=== PATIENT | female | born 1990 | race Hispanic/Latino ===

== ENCOUNTER 2020-12-01 17:20 | Observation (INO) | payer MEDICARE ==
[~2020-12-01] VITALS: Ht 154.9 cm; Wt 56.7 kg
[2020-12-01] MEDS ORDERED: METOPROLOL TARTRATE 1 MG/ML 5ML VIAL IV ONE ×3 (18:17→21:18)
[2020-12-01] MEDS ORDERED: APIXABAN 2.5 MG TABLET PO ONE (18:17)
[2020-12-01] MEDS ORDERED: METOPROLOL TARTRATE 50 MG TAB ONE (18:18)
[2020-12-01 18:19] LABS: BASOPHILS % (AUTO) 0.8 % (0.0-5.0); EOSINOPHILS % (AUTO) 0.2 % (0.0-8.0); HEMATOCRIT 38.7 % (36-48); LYMPHOCYTES % (AUTO) 15.4 % (21.0-51.0); MEAN CORPUSCULAR HEMOGLOBIN 23.2 pg (27.0-33.0); MEAN CORPUSCULAR HGB CONC 31.5 g/dL (32.0-36.0); MEAN CORPUSCULAR VOLUME 73.7 fL (79-99); MONOCYTES % (AUTO) 10.7 % (3.0-13.0); NEUTROPHILS % (AUTO) 72.6 % (40.0-77.0); PLATELET COUNT (AUTO) 229 K/uL (130-400); RED BLOOD CELL COUNT(AUTO) 5.25 MIL/uL (4.00-5.50); RED CELL DISTRIBUTION WIDTH 16.5 % (11.0-15.5); WHITE BLOOD COUNT (AUTO) 12.5 K/uL (4.8-10.8)
[2020-12-01 18:30] LABS: CREATININE 0.8 mg/dL (0.5-1.5)
[2020-12-01 18:32] LABS: INR 1.17 (0.85-1.15); PROTHROMBIN TIME 12.3 SEC (9.6-11.6)
[2020-12-01 18:34] LABS: PARTIAL THROMBOPLASTIN TIME 30.8 SEC (26.3-35.5)
[2020-12-01 18:43] LABS: BILIRUBIN,TOTAL 1.8 mg/dL (0.2-1.0); THYROID STIMULATING HORMONE 0.03 uIU/mL (0.36-3.74); TOTAL PROTEIN, SERUM 7.4 g/dL (6.0-8.3)
[2020-12-01] MEDS ORDERED: 0.9%NACL 10ML VIAL IVP PRN (19:45)
[2020-12-01] MEDS ORDERED: METOPROLOL TARTRATE 1 MG/ML 5ML VIAL IV PRN (19:45)
[2020-12-01] MEDS ORDERED: METOPROLOL TARTRATE 50 MG TAB PO ONE (19:45)
[2020-12-01] MEDS ORDERED: DRONEDARONE HYDROCHLORIDE 400 MG TABLET PO SCH (21:00)
[2020-12-01] MEDS ORDERED: APIXABAN 5 MG TABLET PO SCH (21:00)
[2020-12-02] MEDS ORDERED: 0.9%NACL 1000ML 1,000 ML IV ONE (09:20)
[2020-12-02] MEDS ORDERED: PROPOFOL 10 MG/ML 20ML VIAL IV ONE (09:26)
[2020-12-02] MEDS ORDERED: LIDOCAINE PF 100MG/5ML (2%) SYRINGE 5ML ONE (09:26)
[2020-12-02 11:30] LABS: APPEARANCE,URINE Clear (CLEAR); BILIRUBIN,URINE Negative (NEGATIVE); COLOR,URINE Yellow (YELLOW); GLUCOSE, URINE (UA) Negative (NEGATIVE); KETONES,URINE Trace mg/dL (NEGATIVE); LEUKOCYTE ESTERASE ,URINE Small (NEGATIVE); NITRATE,URINE Negative (NEGATIVE); OCCULT BLOOD,URINE Negative (NEGATIVE); PROTEIN,URINE Negative (NEGATIVE); UROBILINOGEN,URINE 0.2 mg/dL (0.2-1.0)
[2020-12-02 11:47] LABS: BACTERIA,URINE Rare /HPF (None Seen); RBC,URINE None Seen /HPF (0-1); SQUAMOUS EPITHELIAL CELL,UR 0-2 /HPF (0-2); WBC,URINE 0-1 /HPF (0-1)
[2020-12-02] MEDS ORDERED: CEFTRIAXONE 1G VIAL ONE (13:26)
[2020-12-02] MEDS ORDERED: CEFTRIAXONE 1G VIAL IVP SCH (13:30)
[2020-12-02] MEDS ORDERED: DRON400T7 PO (14:06)
[2020-12-02] MEDS ORDERED: CETI10TA57 PO (14:06)
[2020-12-02] MEDS ORDERED: METO-409 PO ×2 (14:06→14:29)
[2020-12-02] MEDS ORDERED: APIX5TAB PO (14:29)
[2020-12-02] MEDS ORDERED: SULF1TAB41 PO (14:29)
== END 2020-12-02 16:01 | disposition home or self-care (01) ==
LOC: EDH 17:20 → EDHIP 17:32
PROVIDERS: ADMIT Internal Medicine; ATTEND Internal Medicine
DX: I48.19 Other persistent atrial fibrillation (principal); Z20.822 Contact with and (suspected) exposure to COVID-19; I42.2 Other hypertrophic cardiomyopathy; Q87.19 Other congenital malformation syndromes predominantly associated with short stature; D68.0 Von Willebrand disease; D72.829 Elevated white blood cell count, unspecified; E80.6 Other disorders of bilirubin metabolism; E05.90 Thyrotoxicosis, unspecified without thyrotoxic crisis or storm; Z95.810 Presence of automatic (implantable) cardiac defibrillator; Z79.01 Long term (current) use of anticoagulants; Z79.899 Other long term (current) drug therapy
CPT/HCPCS: 36415 ×2; 80053; 81001; 84439; 84443; 84480; 85025; 85610; 85730; 87426; 92960; 93005; 93925; 99284; G0378 ×20; J0696; J2001; J2704; J3490 ×3; J7030; U0003

== ENCOUNTER 2021-12-20 18:00 | Inpatient (IN) | payer OTHER, MEDICARE ==
[~2021-12-20] VITALS: Ht 185.4 cm; Wt 63.5 kg
[~2021-12-20 18:00] MED LIST: APIX5TAB PO; CETI10TA57 PO; DRON400T7 PO; METO-409 PO; SULF1TAB41 PO
[2021-12-20 20:14] LABS: HEMATOCRIT 43.7 % (36-48); MEAN CORPUSCULAR HEMOGLOBIN 27.5 pg (27.0-33.0); MEAN CORPUSCULAR HGB CONC 32.3 g/dL (32.0-36.0); MEAN CORPUSCULAR VOLUME 85.4 fL (79-99); RED BLOOD CELL COUNT(AUTO) 5.12 MIL/uL (4.00-5.50); RED CELL DISTRIBUTION WIDTH 14.3 % (11.0-15.5); WHITE BLOOD COUNT (AUTO) 15.7 K/uL (4.8-10.8)
[2021-12-20 20:24] LABS: CREATININE 0.8 mg/dL (0.5-1.5); POTASSIUM 4.3 mmol/L (3.5-5.1)
[2021-12-20 20:28] LABS: ALBUMIN 4.1 g/dL (3.5-5.0); BILIRUBIN,DIRECT 0.4 mg/dL (0.0-0.3); BILIRUBIN,TOTAL 3.8 mg/dL (0.2-1.0); MAGNESIUM 2.1 mg/dL (1.80-2.40); TOTAL PROTEIN, SERUM 7.4 g/dL (6.0-8.3)
[2021-12-20] MEDS: DILTIAZEM 125MG+100 ML NS 125 ML IV SCH (20:45)
[2021-12-20] MEDS ORDERED: METOPROLOL TARTRATE 1 MG/ML 5ML VIAL IV ONE ×3 (23:30→23:45)
[2021-12-21] MEDS: DILTIAZEM 125MG+100 ML NS 125 ML IV SCH (01:17)
[2021-12-21] MEDS ORDERED: DIGOXIN 250 MCG/ML 2ML AMP IV SCH ×5 (02:30→10:30)
[2021-12-21] MEDS ORDERED: ACETAMINOPHEN 325 MG TAB PO PRN (09:30)
[2021-12-22 00:30] VITALS: BP 111/62
[2021-12-22] MEDS: DILTIAZEM 125MG+100 ML NS 125 ML IV SCH (01:00)
[2021-12-22 03:00] VITALS: BP 123/75
[2021-12-22] MEDS ORDERED: 0.9%NACL 1000ML 1,000 ML IV ONE (06:44)
[2021-12-22 08:00] VITALS: BP 126/53
[2021-12-22] MEDS ORDERED: FENTANYL CITRATE PF 50 MCG/1 ML 2ML VIAL ONE (09:14)
[2021-12-22] MEDS ORDERED: MIDAZOLAM HCL 1 MG/ML 2ML VIAL ONE ×2 (09:15→10:01)
[2021-12-22 12:24] VITALS: BP 116/73
[2021-12-22] MEDS ORDERED: DILT-36 PO (16:23)
== END 2021-12-22 17:30 | disposition home or self-care (01) | DRG 309 ==
LOC: EDH 18:00 → EDHIP 18:16 → 2AH 12-21 23:42
PROVIDERS: ADMIT Internal Medicine Cardiovascular Disease; ATTEND Internal Medicine Cardiovascular Disease
PROC: B246ZZ4 Ultrasonography of Right and Left Heart, Transesophageal (ICD-10-PCS; principal; 2021-12-22)
PROC: 5A2204Z Restoration of Cardiac Rhythm, Single (ICD-10-PCS; 2021-12-22)
DX: I48.0 Paroxysmal atrial fibrillation (principal); Q87.19 Other congenital malformation syndromes predominantly associated with short stature; I47.1 Supraventricular tachycardia; Z20.822 Contact with and (suspected) exposure to COVID-19; I42.2 Other hypertrophic cardiomyopathy; Z79.01 Long term (current) use of anticoagulants; Z95.810 Presence of automatic (implantable) cardiac defibrillator
CPT/HCPCS: 36415; 71045; 80048; 80076; 83735; 84484; 85027; 87635; 92960; 93005; 93312; G0378; J1160; J2250; J3010; J3490; J7030

== ENCOUNTER 2022-01-24 04:15 | Inpatient (IN) | payer OTHER, MEDICARE ==
[~2022-01-24 04:15] MED LIST changes: +DILT-36 PO
[2022-01-24 05:17] LABS: BASOPHILS % (AUTO) 0.7 % (0.0-5.0); EOSINOPHILS % (AUTO) 0.5 % (0.0-8.0); HEMATOCRIT 45.3 % (36-48); LYMPHOCYTES % (AUTO) 9.6 % (21.0-51.0); MEAN CORPUSCULAR HEMOGLOBIN 27.4 pg (27.0-33.0); MEAN CORPUSCULAR HGB CONC 33.3 g/dL (32.0-36.0); MEAN CORPUSCULAR VOLUME 82.1 fL (79-99); MONOCYTES % (AUTO) 6.3 % (3.0-13.0); NEUTROPHILS % (AUTO) 82.5 % (40.0-77.0); PLATELET COUNT (AUTO) 236 K/uL (130-400); RED BLOOD CELL COUNT(AUTO) 5.52 MIL/uL (4.00-5.50); RED CELL DISTRIBUTION WIDTH 12.8 % (11.0-15.5); WHITE BLOOD COUNT (AUTO) 14.7 K/uL (4.8-10.8)
[2022-01-24 05:30] LABS: CREATININE 0.5 mg/dL (0.5-1.5); POTASSIUM 4.4 mmol/L (3.5-5.1)
[2022-01-24] MEDS ORDERED: DILTIAZEM 125 MG/25 ML INJ IV ONE (05:33)
[2022-01-24] MEDS ORDERED: DILTIAZEM 50MG VIAL IV ONE (05:34)
[2022-01-24] MEDS ORDERED: 0.9%NACL 100ML 100 ML ONE (05:34)
[2022-01-24 05:42] LABS: ALBUMIN 4.2 g/dL (3.5-5.0); BILIRUBIN,TOTAL 1.8 mg/dL (0.2-1.0); TOTAL PROTEIN, SERUM 7.4 g/dL (6.0-8.3)
[2022-01-24] MEDS: DILTIAZEM 125 MG/25 ML INJ 125 MG in 0.9%NACL 100ML 100 ML IV SCH ×2 (05:47→16:59)
[2022-01-24] MEDS ORDERED: PANTOPRAZOLE 40 MG/VIAL IVP ONE (10:30)
[2022-01-24] MEDS ORDERED: APIXABAN 5 MG TABLET PO SCH (11:00)
[2022-01-24] MEDS: PANTOPRAZOLE 40 MG/VIAL IVP SCH (11:17)
[2022-01-24] MEDS: 0.9%NACL 1000ML 1,000 ML IV SCH (11:21)
[2022-01-24] MEDS ORDERED: MONT-39 PO (11:46)
[2022-01-24 14:28] LABS: APPEARANCE,URINE Clear (CLEAR); BILIRUBIN,URINE Negative (NEGATIVE); COLOR,URINE Yellow (YELLOW); GLUCOSE, URINE (UA) Negative (NEGATIVE); KETONES,URINE Negative (NEGATIVE); LEUKOCYTE ESTERASE ,URINE Small (NEGATIVE); NITRATE,URINE Negative (NEGATIVE); OCCULT BLOOD,URINE Negative (NEGATIVE); PROTEIN,URINE Negative (NEGATIVE); UROBILINOGEN,URINE 0.2 mg/dL (0.2-1.0)
[2022-01-24 14:41] LABS: BACTERIA,URINE Rare /HPF (None Seen); RBC,URINE 0-1 /HPF (0-1); SQUAMOUS EPITHELIAL CELL,UR Few /HPF (0-2); WBC,URINE 0-1 /HPF (0-1)
[2022-01-24] MEDS ORDERED: AMIODARONE 900MG VIAL 360 MG in DEXTROSE 5%-WATER 200 ML IV SCH (16:00)
[2022-01-24] MEDS ORDERED: AMIODARONE 150MG VIAL 150 MG in DEXTROSE 5%-WATER 100 ML IV SCH (16:00)
[2022-01-24] MEDS ORDERED: AMIODARONE 900MG VIAL 540 MG in DEXTROSE 5%-WATER 300 ML IV SCH (16:00)
[2022-01-24] MEDS ORDERED: DRONEDARONE HYDROCHLORIDE 400 MG TABLET PO SCH (17:00)
[2022-01-24] MEDS: APIXABAN 5 MG TABLET PO SCH (20:49)
[2022-01-24] MEDS: METOPROLOL SUCCINATE 50 MG TAB.SR.24H PO SCH (20:50)
[2022-01-24] MEDS: CETIRIZINE HCL 5 MG TABLET PO SCH (20:50)
[2022-01-24 21:34] VITALS: BP 128/96
[2022-01-24] MEDS: GUAIFENESIN-DM 200/20 MG 10 ML PO PRN (22:32)
[2022-01-24 23:35] VITALS: BP 99/70
[2022-01-25 01:41] VITALS: BP 113/83
[2022-01-25 03:42] VITALS: BP 105/67
[2022-01-25 04:25] LABS: BILIRUBIN,DIRECT 0.3 mg/dL (0.0-0.3); BILIRUBIN,TOTAL 3.2 mg/dL (0.2-1.0); THYROID STIMULATING HORMONE 5.37 uIU/mL (0.36-3.74)
[2022-01-25] MEDS: 0.9%NACL 1000ML 1,000 ML IV SCH (04:55)
[2022-01-25 05:49] LABS: BASOPHILS % (AUTO) 0.9 % (0.0-5.0); EOSINOPHILS % (AUTO) 1.4 % (0.0-8.0); HEMATOCRIT 43.2 % (36-48); LYMPHOCYTES % (AUTO) 14.2 % (21.0-51.0); MEAN CORPUSCULAR HEMOGLOBIN 27.7 pg (27.0-33.0); MEAN CORPUSCULAR HGB CONC 32.6 g/dL (32.0-36.0); MEAN CORPUSCULAR VOLUME 84.9 fL (79-99); MONOCYTES % (AUTO) 9.5 % (3.0-13.0); NEUTROPHILS % (AUTO) 73.8 % (40.0-77.0); PLATELET COUNT (AUTO) 241 K/uL (130-400); RED BLOOD CELL COUNT(AUTO) 5.09 MIL/uL (4.00-5.50); RED CELL DISTRIBUTION WIDTH 13.1 % (11.0-15.5)
[2022-01-25 05:58] LABS: ALBUMIN 3.7 g/dL (3.5-5.0); CREATININE 0.5 mg/dL (0.5-1.5); POTASSIUM 3.6 mmol/L (3.5-5.1); TOTAL PROTEIN, SERUM 6.6 g/dL (6.0-8.3)
[2022-01-25 07:00] VITALS: BP 112/75
[2022-01-25] MEDS: DILTIAZEM 120MG SR CAP PO SCH (09:13)
[2022-01-25] MEDS: APIXABAN 5 MG TABLET PO SCH ×2 (09:13→21:15)
[2022-01-25] MEDS: PANTOPRAZOLE 40 MG/VIAL IVP SCH (09:13)
[2022-01-25] MEDS: AMIODARONE 200 MG TABLET PO SCH ×2 (09:14→21:15)
[2022-01-25] MEDS: DILTIAZEM 125 MG/25 ML INJ 125 MG in 0.9%NACL 100ML 100 ML IV SCH (10:10)
[2022-01-25 11:00] VITALS: BP 123/85
[2022-01-25 16:00] VITALS: BP 110/57
[2022-01-25 19:28] VITALS: BP 117/71
[2022-01-25] MEDS: CETIRIZINE HCL 5 MG TABLET PO SCH (21:15)
[2022-01-25] MEDS: METOPROLOL SUCCINATE 50 MG TAB.SR.24H PO SCH (21:15)
[2022-01-25] MEDS: GUAIFENESIN-DM 200/20 MG 10 ML PO PRN (21:23)
[2022-01-26] VITALS (14 sets, daily range): BP systolic 105–135; BP diastolic 47–77
[2022-01-26] MEDS ORDERED: DILTIAZEM 50MG VIAL IV ONE ×2 (02:13→02:32)
[2022-01-26] MEDS: DILTIAZEM 125 MG/25 ML INJ 125 MG in 0.9%NACL 100ML 100 ML IV SCH (02:24)
[2022-01-26] MEDS: 0.9%NACL 1000ML 1,000 ML IV SCH (02:24)
[2022-01-26 04:33] LABS: BASOPHILS % (AUTO) 0.8 % (0.0-5.0); EOSINOPHILS % (AUTO) 1.1 % (0.0-8.0); HEMATOCRIT 38.4 % (36-48); LYMPHOCYTES % (AUTO) 8.3 % (21.0-51.0); MEAN CORPUSCULAR HGB CONC 33.3 g/dL (32.0-36.0); MONOCYTES % (AUTO) 7.5 % (3.0-13.0); NEUTROPHILS % (AUTO) 80.9 % (40.0-77.0); PLATELET COUNT (AUTO) 202 K/uL (130-400); RED BLOOD CELL COUNT(AUTO) 4.57 MIL/uL (4.00-5.50); RED CELL DISTRIBUTION WIDTH 13.2 % (11.0-15.5); WHITE BLOOD COUNT (AUTO) 13.2 K/uL (4.8-10.8)
[2022-01-26 04:48] LABS: ALBUMIN 3.3 g/dL (3.5-5.0); BILIRUBIN,TOTAL 2.1 mg/dL (0.2-1.0); CREATININE 0.5 mg/dL (0.5-1.5); POTASSIUM 3.4 mmol/L (3.5-5.1); TOTAL PROTEIN, SERUM 6.3 g/dL (6.0-8.3)
[2022-01-26] MEDS: DILTIAZEM 120MG SR CAP PO SCH (08:52)
[2022-01-26] MEDS: APIXABAN 5 MG TABLET PO SCH (08:52)
[2022-01-26] MEDS: AMIODARONE 200 MG TABLET PO SCH (08:52)
[2022-01-26] MEDS: PANTOPRAZOLE 40 MG/VIAL IVP SCH (08:53)
[2022-01-26] MEDS ORDERED: KCL 20 MEQ ERTAB PO SCH (11:00)
[2022-01-26] MEDS ORDERED: PROPOFOL 10 MG/ML 20ML VIAL IV ONE (15:12)
[2022-01-26] MEDS ORDERED: AMIO200T68 PO (16:08)
== END 2022-01-26 18:58 | disposition home or self-care (01) | DRG 309 ==
LOC: EDH 04:15 → EDHIP 10:21 → 2AH 17:49
PROVIDERS: ADMIT Internal Medicine; ATTEND Internal Medicine
PROC: 5A2204Z Restoration of Cardiac Rhythm, Single (ICD-10-PCS; principal; 2022-01-26)
DX: I48.19 Other persistent atrial fibrillation (principal); Q87.19 Other congenital malformation syndromes predominantly associated with short stature; D68.0 Von Willebrand disease; E03.9 Hypothyroidism, unspecified; D72.829 Elevated white blood cell count, unspecified; I48.92 Unspecified atrial flutter; I42.2 Other hypertrophic cardiomyopathy; I47.1 Supraventricular tachycardia; Z20.822 Contact with and (suspected) exposure to COVID-19; Z79.01 Long term (current) use of anticoagulants; Z95.810 Presence of automatic (implantable) cardiac defibrillator; Z83.3 Family history of diabetes mellitus; Z83.42 Family history of familial hypercholesterolemia; Z82.49 Family history of ischemic heart disease and other diseases of the circulatory system
CPT/HCPCS: 36415; 71045; 80053; 81001; 82247; 82248; 83735; 84145; 84443; 84484; 85025; 85651; 86140; 87635; 87804; 93005; 93306; 99291; C9113; G0378; J0282; J2704; J3490; J7030; J7060

== ENCOUNTER → 2022-03-13 | Outpatient (CLI) | payer OTHER, MEDICARE ==
[~2022-03-13] MED LIST changes: +AMIO200T68 PO; -DRON400T7 PO; +IOHEXOL 350 MG/ML 100ML INFUS..BTL IV ONE; +MONT-39 PO
== END | disposition home or self-care (01) ==
LOC: RAH 10:25
PROVIDERS: ATTEND Internal Medicine Cardiovascular Disease
DX: I48.0 Paroxysmal atrial fibrillation (principal); I51.7 Cardiomegaly; M47.815 Spondylosis without myelopathy or radiculopathy, thoracolumbar region; Q79.1 Other congenital malformations of diaphragm
CPT/HCPCS: 71275; Q9967

== ENCOUNTER 2022-03-16 10:30 | Observation (INO) | payer OTHER, MEDICARE ==
[2022-03-14 08:30] LABS: BASOPHILS % (AUTO) 0.8 % (0.0-5.0); EOSINOPHILS % (AUTO) 1.6 % (0.0-8.0); HEMATOCRIT 44.6 % (36-48); MEAN CORPUSCULAR HEMOGLOBIN 27.1 pg (27.0-33.0); MEAN CORPUSCULAR HGB CONC 31.4 g/dL (32.0-36.0); MEAN CORPUSCULAR VOLUME 86.3 fL (79-99); MONOCYTES % (AUTO) 8.8 % (3.0-13.0); NEUTROPHILS % (AUTO) 75.3 % (40.0-77.0); PLATELET COUNT (AUTO) 215 K/uL (130-400); RED BLOOD CELL COUNT(AUTO) 5.17 MIL/uL (4.00-5.50); WHITE BLOOD COUNT (AUTO) 9.8 K/uL (4.8-10.8)
[2022-03-14 08:42] LABS: CREATININE 0.8 mg/dL (0.5-1.5); POTASSIUM 4.6 mmol/L (3.5-5.1)
[2022-03-14 08:43] LABS: INR 1.06 (0.85-1.15); PROTHROMBIN TIME 11.5 SEC (9.6-11.6)
[2022-03-14 08:44] LABS: PARTIAL THROMBOPLASTIN TIME 33.6 SEC (26.3-35.5)
[2022-03-14 10:18] VITALS: BP 96/57
[2022-03-16] VITALS (17 sets, daily range): BP systolic 93–140; BP diastolic 37–59
[~2022-03-16] VITALS: Ht 149.9 cm; Wt 68.5 kg
[~2022-03-16 10:30] MED LIST changes: +0.9% NACL 500ML IV.SOLN 500 ML IV SCH; -IOHEXOL 350 MG/ML 100ML INFUS..BTL IV ONE
[2022-03-16] MEDS ORDERED: 0.9%NACL 1000ML 1,000 ML IV ONE (10:56)
[2022-03-16] MEDS ORDERED: DRON400T7 PO (11:08)
[2022-03-16] MEDS ORDERED: LORA10TA7 PO (11:10)
[2022-03-16] MEDS ORDERED: ISOPROTERENOL HCL 0.2 MG/ML AMP/VIAL/BAG ONE (11:27)
[2022-03-16] MEDS ORDERED: HEPARIN 1,000 UNIT VIAL ONE (11:27)
[2022-03-16] MEDS ORDERED: LIDOCAINE HCL 1% MDV 50ML VIAL ONE ×2 (11:28→13:29)
[2022-03-16] MEDS ORDERED: LIDOCAINE PF 100MG/5ML (2%) SYRINGE 5ML ONE (13:06)
[2022-03-16] MEDS ORDERED: PROPOFOL 10 MG/ML 20ML VIAL IV ONE (13:07)
[2022-03-16] MEDS ORDERED: FENTANYL CITRATE PF 50 MCG/1 ML 2ML VIAL ONE ×2 (13:07→15:27)
[2022-03-16] MEDS ORDERED: MIDAZOLAM HCL 1 MG/ML 2ML VIAL ONE (13:07)
[2022-03-16] MEDS ORDERED: ROCURONIUM BROMIDE 10MG/1ML 5ML VL ONE (13:09)
[2022-03-16] MEDS ORDERED: SUCCINYLCHOLINE 200MG/10ML SYR ONE (13:09)
[2022-03-16] MEDS ORDERED: ROCURONIUM 10MG/1ML SYR 10 MG/ML ML ONE (13:10)
[2022-03-16] MEDS ORDERED: HEPARIN 10,000 UNIT/10ML (1,000 UNIT/ML) VIAL ONE (14:37)
[2022-03-16] MEDS ORDERED: ROCURONIUM BROMIDE 10MG/1ML 5ML VL IV ONE (16:09)
[2022-03-16] MEDS ORDERED: PROTAMINE SULFATE 10 MG/ML 25ML VIAL IV ONE (16:27)
[2022-03-16] MEDS ORDERED: SUGAMMADEX SODIUM 200 MG/2 ML VIAL IV ONE (16:30)
[2022-03-16] MEDS ORDERED: PANTOPRAZOLE 40 MG TAB DR PO SCH (18:00)
[2022-03-16] MEDS: SUCRALFATE 1 GM TABLET PO SCH (20:08)
[2022-03-16] MEDS: APIXABAN 5 MG TABLET PO SCH (20:09)
[2022-03-16] MEDS ORDERED: MONTELUKAST SODIUM 10 MG TAB PO SCH (21:00)
[2022-03-16] MEDS ORDERED: METOPROLOL SUCCINATE 50 MG TAB.SR.24H PO SCH (21:00)
[2022-03-17] MEDS: SUCRALFATE 1 GM TABLET PO SCH ×3 (02:37→11:11)
[2022-03-17 03:29] VITALS: BP 134/53
[2022-03-17 06:49] VITALS: BP 105/56
[2022-03-17 08:00] VITALS: BP 129/72
[2022-03-17] MEDS: APIXABAN 5 MG TABLET PO SCH (08:46)
[2022-03-17] MEDS ORDERED: PANTOPRAZOLE 40 MG TAB DR PO SCH (09:00)
[2022-03-17] MEDS ORDERED: LORATADINE 10 MG TABLET PO SCH (09:00)
[2022-03-17] MEDS ORDERED: DILTIAZEM 120MG SR CAP PO SCH (09:00)
[2022-03-17 12:00] VITALS: BP 117/56
[2022-03-17] MEDS ORDERED: PANT40TA55 PO (15:07)
[2022-03-17] MEDS ORDERED: CARAL PO (15:07)
== END 2022-03-17 16:10 | disposition home or self-care (01) ==
LOC: DAH 10:30 → DAHIP 17:28 → 2DH 19:28
PROVIDERS: ADMIT Internal Medicine Cardiovascular Disease; ATTEND Internal Medicine Cardiovascular Disease
DX: I48.0 Paroxysmal atrial fibrillation (principal); Z20.822 Contact with and (suspected) exposure to COVID-19; I42.2 Other hypertrophic cardiomyopathy; I48.19 Other persistent atrial fibrillation; Q87.19 Other congenital malformation syndromes predominantly associated with short stature; D68.0 Von Willebrand disease; E05.90 Thyrotoxicosis, unspecified without thyrotoxic crisis or storm; Z79.899 Other long term (current) drug therapy; Z98.890 Other specified postprocedural states; Z79.82 Long term (current) use of aspirin
CPT/HCPCS: 36415 ×2; 80048; 84703; 85025; 85347 ×6; 85610; 85730; 87635; 93005 ×2; 93622; 93623; 93656; A4215; A4216; A4221; A4222; A4223 ×3; A4344; A4606; A4649 ×2; A4663; C1730; C1731; C1732; C1760; C1893; C1894 ×3; C9803; G0378 ×22; J0330; J1644 ×4; J2001; J2250; J2704; J2720; J3010 ×2; J3490 ×4; J7030

== ENCOUNTER 2022-08-10 08:50 | Day surgery (SDC) | payer OTHER, MEDICARE ==
[2022-08-08 14:17] LABS: BASOPHILS % (AUTO) 0.9 % (0.0-5.0); EOSINOPHILS % (AUTO) 1.7 % (0.0-8.0); HEMATOCRIT 37.1 % (36-48); MEAN CORPUSCULAR HEMOGLOBIN 23.3 pg (27.0-33.0); MEAN CORPUSCULAR HGB CONC 30.5 g/dL (32.0-36.0); MEAN CORPUSCULAR VOLUME 76.3 fL (79-99); MONOCYTES % (AUTO) 7.8 % (3.0-13.0); NEUTROPHILS % (AUTO) 69.2 % (40.0-77.0); PLATELET COUNT (AUTO) 300 K/uL (130-400); RED BLOOD CELL COUNT(AUTO) 4.86 MIL/uL (4.00-5.50); RED CELL DISTRIBUTION WIDTH 14.6 % (11.0-15.5); WHITE BLOOD COUNT (AUTO) 9.4 K/uL (4.8-10.8)
[2022-08-08 14:29] LABS: INR 1.16 (0.85-1.15); PROTHROMBIN TIME 12.5 SEC (9.6-11.6)
[2022-08-08 14:30] LABS: PARTIAL THROMBOPLASTIN TIME 39.8 SEC (26.3-35.5)
[2022-08-08 14:31] LABS: CREATININE 0.8 mg/dL (0.5-1.5); DIGOXIN 1.32 ng/mL (0.50-2.00); POTASSIUM 4.1 mmol/L (3.5-5.1)
[2022-08-09 09:34] VITALS: BP 117/71
[2022-08-10] VITALS (10 sets, daily range): BP systolic 93–134; BP diastolic 44–87
[~2022-08-10] VITALS: Ht 149.9 cm; Wt 64.4 kg
[~2022-08-10 08:50] MED LIST changes: -AMIO200T68 PO; +AZIT500T4 PO; -CETI10TA57 PO; +DIGO250T73 PO; +DRON400T7 PO; +LEVO50CA4 PO; +LORA10TA7 PO; +PROM118S5 PO; -SULF1TAB41 PO; +vitamin d PO
[2022-08-10] MEDS ORDERED: 0.9%NACL 1000ML 1,000 ML IV ONE (09:56)
[2022-08-10] MEDS ORDERED: PROPOFOL 10 MG/ML 20ML VIAL IV ONE (13:51)
[2022-09-04] MEDS ORDERED: MONT-39 PO (15:17)
[2022-09-04] MEDS ORDERED: LEVO50CA4 PO (15:17)
[2022-09-04] MEDS ORDERED: DIGO125T71 PO (15:17)
[2022-09-04] MEDS ORDERED: DILT120T PO (15:17)
[2022-09-04] MEDS ORDERED: FERS325 PO (15:17)
[2022-09-04] MEDS ORDERED: APIX5TAB PO (15:17)
[2022-09-12] MEDS ORDERED: LEVO75TA10 PO (09:29)
[2022-09-12] MEDS ORDERED: DOXY100C5 PO (09:29)
[2022-09-12] MEDS ORDERED: CEFU500T67 PO (15:17)
== END 2022-08-10 15:15 | disposition home or self-care (01) ==
LOC: DAH 08:50
PROVIDERS: ATTEND Internal Medicine Cardiovascular Disease
DX: I48.11 Longstanding persistent atrial fibrillation (principal); I42.2 Other hypertrophic cardiomyopathy; Q87.19 Other congenital malformation syndromes predominantly associated with short stature; E05.90 Thyrotoxicosis, unspecified without thyrotoxic crisis or storm; D68.09 Other von Willebrand disease; E66.9 Obesity, unspecified; Z79.01 Long term (current) use of anticoagulants; Z79.890 Hormone replacement therapy; Z79.899 Other long term (current) drug therapy; E03.9 Hypothyroidism, unspecified; Z79.82 Long term (current) use of aspirin
CPT/HCPCS: 87426; 80162; 80048; 84703; 85025; 85610; 85730; 36415; 92960; 93005; J7030; J2704; A4615; A4215; A4222; A4221; A4663; A4216; A4606; A4223 ×3; 99156

== ENCOUNTER 2022-09-05 05:42 | Observation (INO) | payer OTHER, MEDICARE ==
[2022-09-01 14:05] LABS: BASOPHILS % (AUTO) 0.9 % (0.0-5.0); EOSINOPHILS % (AUTO) 1.1 % (0.0-8.0); HEMATOCRIT 32.9 % (36-48); LYMPHOCYTES % (AUTO) 21.7 % (21.0-51.0); MEAN CORPUSCULAR HEMOGLOBIN 21.6 pg (27.0-33.0); MEAN CORPUSCULAR HGB CONC 30.1 g/dL (32.0-36.0); MEAN CORPUSCULAR VOLUME 71.8 fL (79-99); MONOCYTES % (AUTO) 10.1 % (3.0-13.0); NEUTROPHILS % (AUTO) 65.4 % (40.0-77.0); PLATELET COUNT (AUTO) 315 K/uL (130-400); RED BLOOD CELL COUNT(AUTO) 4.58 MIL/uL (4.00-5.50); WHITE BLOOD COUNT (AUTO) 8.5 K/uL (4.8-10.8)
[2022-09-01 14:17] LABS: INR 1.25 (0.85-1.15); PROTHROMBIN TIME 13.5 SEC (9.6-11.6)
[2022-09-01 14:18] LABS: PARTIAL THROMBOPLASTIN TIME 36.2 SEC (26.3-35.5)
[2022-09-01 14:19] LABS: CREATININE 0.8 mg/dL (0.5-1.5); POTASSIUM 3.6 mmol/L (3.5-5.1)
[2022-09-04 12:17] VITALS: BP 111/53
[2022-09-05] VITALS (23 sets, daily range): BP systolic 86–122; BP diastolic 42–66
[~2022-09-05] VITALS: Ht 149.9 cm; Wt 71.2 kg
[~2022-09-05 05:42] MED LIST changes: -0.9% NACL 500ML IV.SOLN 500 ML IV SCH; -AZIT500T4 PO; +DIGO125T71 PO; -DIGO250T73 PO; -DILT-36 PO; +DILT120T PO; +FERS325 PO; +PHENYLEPHRINE HCL 10 MG/ML 1ML VIAL IV ONE; -PROM118S5 PO
[2022-09-05] MEDS ORDERED: 0.9%NACL 1000ML 1,000 ML IV ONE (06:23)
[2022-09-05] MEDS ORDERED: LIDOCAINE HCL 1% 20 ML VIAL ONE (07:29)
[2022-09-05] MEDS ORDERED: HEPARIN 10,000 UNIT/10ML (1,000 UNIT/ML) VIAL ONE (07:29)
[2022-09-05] MEDS ORDERED: SUCCINYLCHOLINE 200MG/10ML SYR ONE (07:34)
[2022-09-05] MEDS ORDERED: PROPOFOL 10 MG/ML 20ML VIAL IV ONE (07:35)
[2022-09-05] MEDS ORDERED: MIDAZOLAM HCL 1 MG/ML 2ML VIAL ONE (07:35)
[2022-09-05] MEDS ORDERED: ROCURONIUM 10MG/1ML SYR 10 MG/ML ML ONE (07:35)
[2022-09-05] MEDS ORDERED: FENTANYL CITRATE PF 50 MCG/1 ML 2ML VIAL ONE (07:35)
[2022-09-05] MEDS ORDERED: EPHEDRINE SULFATE 50 MG/ML AMPULE ONE (07:37)
[2022-09-05] MEDS ORDERED: PROTAMINE SULFATE 10 MG/ML 25ML VIAL IV ONE (12:34)
[2022-09-05 12:57] LABS: INR 1.41 (0.85-1.15); PROTHROMBIN TIME 15.1 SEC (9.6-11.6)
[2022-09-05] MEDS ORDERED: GLYCOPYRROLATE 1 MG/5 ML SYRINGE ONE (13:19)
[2022-09-05] MEDS ORDERED: PHENYLEPHRINE HCL 10 MG/ML 1ML VIAL IV ONE (13:19)
[2022-09-05] MEDS: SUCRALFATE 1 GM TABLET PO SCH ×2 (13:30→19:30)
[2022-09-05] MEDS ORDERED: PANTOPRAZOLE 40 MG TAB DR PO SCH (13:30)
[2022-09-05] MEDS ORDERED: ERGOCALCIFEROL (VITAMIN D2) 50,000 UNIT CAPSULE PO SCH (13:30)
[2022-09-05] MEDS ORDERED: ACETAMINOPHEN 325 MG TAB PO PRN (13:30)
[2022-09-05 13:37] LABS: PARTIAL THROMBOPLASTIN TIME > 139.0 SEC (26.3-35.5)
[2022-09-05] MEDS ORDERED: NEOSTIGMINE 5MG/5ML SYR IV ONE (13:39)
[2022-09-05 15:25] LABS: APPEARANCE,URINE CLEAR (CLEAR); BILIRUBIN,URINE NEGATIVE (NEGATIVE); COLOR,URINE LIGHT-YELLOW (YELLOW); GLUCOSE, URINE (UA) NEGATIVE (NEGATIVE); KETONES,URINE NEGATIVE (NEGATIVE); LEUKOCYTE ESTERASE ,URINE NEGATIVE Leu/uL (NEGATIVE); NITRATE,URINE NEGATIVE (NEGATIVE); OCCULT BLOOD,URINE SMALL (NEGATIVE); PH,URINE 5.5 (5.0-8.0); PROTEIN,URINE 20 mg/dL (NEGATIVE); UROBILINOGEN,URINE 0.2 mg/dL (0.2-1.0)
[2022-09-05 15:32] LABS: BACTERIA,URINE RARE /HPF (None Seen); MUCUS,URINE RARE LPF (None Seen)
[2022-09-05] MEDS ORDERED: ONDANSETRON 4MG INJ IVP ONE (16:00)
[2022-09-05] MEDS ORDERED: ONDANSETRON 4MG INJ ONE (16:02)
[2022-09-05] MEDS ORDERED: MONTELUKAST SODIUM 10 MG TAB PO SCH (21:00)
[2022-09-05] MEDS ORDERED: DILTIAZEM 120MG SR CAP PO SCH (21:00)
[2022-09-05] MEDS ORDERED: LORATADINE 10 MG TABLET PO SCH (21:00)
[2022-09-05] MEDS: DRONEDARONE HYDROCHLORIDE 400 MG TABLET PO SCH (21:21)
[2022-09-05] MEDS: APIXABAN 5 MG TABLET PO SCH (21:21)
[2022-09-06] MEDS: SUCRALFATE 1 GM TABLET PO SCH ×2 (00:31→05:33)
[2022-09-06 02:56] VITALS: BP 110/52
[2022-09-06 03:44] LABS: BASOPHILS % (AUTO) 0.5 % (0.0-5.0); EOSINOPHILS % (AUTO) 0.4 % (0.0-8.0); HEMATOCRIT 26.6 % (36-48); LYMPHOCYTES % (AUTO) 7.7 % (21.0-51.0); MEAN CORPUSCULAR HEMOGLOBIN 21.7 pg (27.0-33.0); MEAN CORPUSCULAR HGB CONC 29.3 g/dL (32.0-36.0); MEAN CORPUSCULAR VOLUME 74.1 fL (79-99); MONOCYTES % (AUTO) 11.2 % (3.0-13.0); NEUTROPHILS % (AUTO) 78.8 % (40.0-77.0); PLATELET COUNT (AUTO) 188 K/uL (130-400); RED BLOOD CELL COUNT(AUTO) 3.59 MIL/uL (4.00-5.50); RED CELL DISTRIBUTION WIDTH 17.9 % (11.0-15.5); WHITE BLOOD COUNT (AUTO) 11.1 K/uL (4.8-10.8)
[2022-09-06 03:54] LABS: INR 1.3 (0.85-1.15)
[2022-09-06 03:56] LABS: PARTIAL THROMBOPLASTIN TIME 38.7 SEC (26.3-35.5)
[2022-09-06 04:01] LABS: ASPARTATE AMINOTRANSFERASE 16 U/L (10-37); CARBON DIOXIDE 27 mmol/L (21-32); CHLORIDE 110 mmol/L (101-111); CREATININE 0.7 mg/dL (0.5-1.5); GLOMERULAR FILTR. RATE CALC 102 mL/min (>60); GLUCOSE,RANDOM 99 mg/dL (70-105); POTASSIUM 3.4 mmol/L (3.5-5.1); SODIUM SERUM 145 mmol/L (136-145); TOTAL PROTEIN, SERUM 5.3 g/dL (6.0-8.3); UREA NITROGEN, BLOOD 7 mg/dL (7-18)
[2022-09-06 04:26] LABS: ALANINE AMINOTRANSFERASE < 6 U/L (12-78)
[2022-09-06] MEDS ORDERED: CARAL PO (08:19)
[2022-09-06] MEDS ORDERED: PANT40TA PO (08:19)
[2022-09-06 08:55] VITALS: BP 116/60
[2022-09-06] MEDS ORDERED: FERROUS SULFATE 325 MG TABLET.DR PO SCH (09:00)
[2022-09-06] MEDS ORDERED: PANTOPRAZOLE 40 MG TAB DR PO SCH (09:00)
[2022-09-06] MEDS ORDERED: METOPROLOL SUCCINATE 50 MG TAB.SR.24H PO SCH (09:00)
[2022-09-06] MEDS ORDERED: DIGOXIN 125 MCG TABLET PO SCH (09:00)
[2022-09-06] MEDS ORDERED: LEVOTHYROXINE 50 MCG TABLET PO SCH (09:00)
[2022-09-06] MEDS: DRONEDARONE HYDROCHLORIDE 400 MG TABLET PO SCH (09:26)
[2022-09-06] MEDS: APIXABAN 5 MG TABLET PO SCH (09:27)
[2022-09-06 09:42] LABS: HEMATOCRIT 27.6 % (36-48); MEAN CORPUSCULAR HEMOGLOBIN 21.8 pg (27.0-33.0); MEAN CORPUSCULAR HGB CONC 29.3 g/dL (32.0-36.0); MEAN CORPUSCULAR VOLUME 74.2 fL (79-99); PLATELET COUNT (AUTO) 193 K/uL (130-400); RED BLOOD CELL COUNT(AUTO) 3.72 MIL/uL (4.00-5.50); RED CELL DISTRIBUTION WIDTH 18.2 % (11.0-15.5); WHITE BLOOD COUNT (AUTO) 9.4 K/uL (4.8-10.8)
[2022-09-06 09:56] LABS: ALANINE AMINOTRANSFERASE < 6 U/L (12-78); ALBUMIN 3.2 g/dL (3.5-5.0); ASPARTATE AMINOTRANSFERASE 13 U/L (10-37); CARBON DIOXIDE 28 mmol/L (21-32); CHLORIDE 108 mmol/L (101-111); CREATININE 0.7 mg/dL (0.5-1.5); GLOMERULAR FILTR. RATE CALC 102 mL/min (>60); GLUCOSE,RANDOM 97 mg/dL (70-105); POTASSIUM 3.6 mmol/L (3.5-5.1); SODIUM SERUM 143 mmol/L (136-145); TOTAL PROTEIN, SERUM 5.9 g/dL (6.0-8.3); UREA NITROGEN, BLOOD 6 mg/dL (7-18)
[2022-09-06] MEDS ORDERED: KCL 20 MEQ ERTAB PO SCH (10:30)
[2022-09-06] MEDS ORDERED: MAGNESIUM 2GM PREMIX 50ML 50 ML IV SCH (10:30)
[2022-09-06 11:19] LABS: EOSINOPHILS % (MANUAL) 1 % (1-6); LYMPHOCYTES % (MANUAL) 9 % (22-44); MAN.DIFF COMMENT-IMPRESSION MANUAL DIFFERENTIAL; MONOCYTES % (MANUAL) 6 % (2-9); PLATELET MORPHOLOGY COMMENT ADEQUATE; SEGMENTED NEUTROPHILS % 84 % (40-70)
[2022-09-07] MEDS ORDERED: LEVOTHYROXINE 50 MCG TABLET PO SCH (06:30)
[2022-09-12] MEDS ORDERED: DOXY100C5 PO (09:29)
[2022-09-12] MEDS ORDERED: LEVO75TA10 PO (09:29)
[2022-09-12] MEDS ORDERED: CEFU500T67 PO (15:17)
== END 2022-09-06 13:19 | disposition home or self-care (01) ==
LOC: DAH 05:42 → DAHIP 05:43 → OBSVTOIN 05:43 → INTOOBSV 05:43 → DAH 05:43 → 2AH 15:10
PROVIDERS: ADMIT Internal Medicine; ATTEND Internal Medicine
DX: I48.19 Other persistent atrial fibrillation (principal); Z20.822 Contact with and (suspected) exposure to COVID-19; I42.2 Other hypertrophic cardiomyopathy; Q87.19 Other congenital malformation syndromes predominantly associated with short stature; D68.00 Von Willebrand disease, unspecified; D64.9 Anemia, unspecified; I10 Essential (primary) hypertension; E07.9 Disorder of thyroid, unspecified; A30 Leprosy [Hansen's disease]; E78.00 Pure hypercholesterolemia, unspecified; Z79.01 Long term (current) use of anticoagulants; Z95.810 Presence of automatic (implantable) cardiac defibrillator; Z79.899 Other long term (current) drug therapy; Z98.890 Other specified postprocedural states
CPT/HCPCS: 80048; 84703; 85025 ×3; 85610 ×3; 85730 ×3; 87426; 36415 ×3; 93005 ×2; 93656; 93657 ×2; 96375; 85347 ×9; 87088; 81001; 96365; 96366; 83735 ×2; 80053 ×2; 84145; A4344; C1894 ×4; C1769; C1893; A4215 ×2; C1731; C1732; C1730; G0378 ×24; A4663; J3010; J0330; J3490 ×2; J2710; J7030; J2720; J1644 ×3; J2250; J2704; J2405; J2370 ×2; A4223; A4222; A4221; J3475; 96361